=== PATIENT | female | born 1965 | race Caucasian/White ===

== ENCOUNTER 2018-03-15 18:00 | Emergency (ER) | payer SELFPAY ==
[~2018-03-15] VITALS: Ht 177.8 cm; Wt 100.0 kg
[~2018-03-15 18:00] MED LIST: CALTRATE-600 W600 MG PO; CEPHALEXIN500 M1 PO; FLEXERIL 1010 MG/TAB PO; GREEN TEA PO; MVI PO; NO HOME MEDICATIONS; NORCO 325 MG-51 TAB PO; PREDNISONE10 MG PO; TYLENOL 325MG325 MG PO; VITAMIN C1 TAB PO
[2018-03-15 18:03] VITALS: TEMP 98.2
[2018-03-15] MEDS ORDERED: TYLENOL 500MG500 MG PO (18:16)
[2018-03-15] MEDS ORDERED: FLEXERIL 1010 MG/TAB PO (18:59)
[2018-03-15 19:49] VITALS: BP 179/89; PULSE 86
== END 2018-03-15 19:53 | disposition home or self-care (01) ==
LOC: COL.ER 18:00
DX: G89.29 Other chronic pain (principal); M54.5 Low back pain; F17.210 Nicotine dependence, cigarettes, uncomplicated; Z98.890 Other specified postprocedural states; X50.0XXA Overexertion from strenuous movement or load, initial encounter
CPT/HCPCS: J1885; J2360

== ENCOUNTER 2021-07-24 07:04 | Inpatient (IN) | payer SELFPAY ==
[~2021-07-24] VITALS: Ht 177.8 cm; Wt 96.8 kg
[~2021-07-24 07:04] MED LIST changes: +TYLENOL 500MG500 MG PO
[2021-07-24 07:43] LABS: BASO # 0.1 K/mm3 (0.0-0.2); BASO % 0.6 % (0.0-2.0); EOS % 0.3 % (0.0-4.0); GRAN # 6.9 K/mm3 (1.4-6.5); GRAN % 77.8 % (42.2-75.2); HEMATOCRIT 49.6 % (37.0-47.0); HEMOGLOBIN 16.5 g/dl (12.5-16.0); LYMPH # 1.4 K/mm3 (1.2-3.4); MEAN CELL VOLUME 92 fl (80.0-100.0); MEAN CORPUSCULAR HEMOGLOBIN 31 pg (27-31); MEAN CORPUSCULAR HGB CONC 33 g/dl (33.0-37.0); MEAN PLATELET VOLUME 11.2 fl (7.4-10.4); MONO # 0.5 K/mm3 (0.1-0.6); MONO % 5.1 % (1.7-9.3); PLATELET COUNT 244 K/mm3 (130-400); RED BLOOD COUNT 5.39 M/mm3 (4.10-5.30); REDCELL DISTRIBUTION WIDTH-CV 12.7 % (11.5-14.5)
[2021-07-24 07:55] LABS: BILIRUBIN,TOTAL 0.5 mg/dL (0.2-1.2); CALCIUM 9.4 mg/dL (8.4-10.2); CREATININE, serum 0.73 mg/dL (0.57-1.11); POTASSIUM 4.8 mmol/L (3.5-4.5); TOTAL PROTEIN 6.6 gm/dL (6.2-8.1)
[2021-07-24 08:01] LABS: TROPONIN-I 0.032 ng/mL (0.00-0.033)
--- NOTE | 2021-07-24 15:00 | NUR ---
Patient to room 318 from the ED by wheelchair, daughter with the patient. Nurse oriented the patient to location, bed, call light and visitor policy. Patient A&Ox4. VSS 3L NC O2, no reported SOB. Call light within reach
--- NOTE | 2021-07-24 18:15 | NUR ---
Patient resting in bed, No complaints. Independent in the room. Call light within reach
[2021-07-24 21:53] VITALS: BP 129/81; PULSE 120; TEMP 97.2
[2021-07-25] VITALS (7 sets, daily range): BP systolic 106–139; BP diastolic 70–92; PULSE 104–132; TEMP 97.6–98
--- NOTE | 2021-07-25 05:15 | NUR ---
NO NEW ISSUES NOTED OR REPORTED BY PATIENT THROUGHOUT THE NIGHT. PATIENT RESTED QUIETLY IN BED.
[2021-07-25 07:01] LABS: BASO % 0.1 % (0.0-2.0); EOS % 0.1 % (0.0-4.0); GRAN # 11.6 K/mm3 (1.4-6.5); GRAN % 81.7 % (42.2-75.2); HEMATOCRIT 45.5 % (37.0-47.0); LYMPH # 1.5 K/mm3 (1.2-3.4); LYMPH % 10.8 % (20.0-51.0); MEAN CELL VOLUME 93 fl (80.0-100.0); MEAN CORPUSCULAR HEMOGLOBIN 31 pg (27-31); MEAN CORPUSCULAR HGB CONC 33 g/dl (33.0-37.0); MEAN PLATELET VOLUME 11.5 fl (7.4-10.4); MONO % 6.7 % (1.7-9.3); PLATELET COUNT 228 K/mm3 (130-400); RED BLOOD COUNT 4.91 M/mm3 (4.10-5.30); REDCELL DISTRIBUTION WIDTH-CV 12.7 % (11.5-14.5)
[2021-07-25 07:20] LABS: CREATININE, serum 0.62 mg/dL (0.57-1.11); POTASSIUM 4.1 mmol/L (3.5-4.5)
--- NOTE | 2021-07-25 08:00 | NUR ---
Patient sitting up in bed eating breakfast. A&Ox4. VSS patient took off O2, states she thinks she doesnt need it. No reported SOB. HR tachycardic, doctor aware. Denies pain and discomfort. Call light within reach
--- NOTE | 2021-07-25 18:14 | NUR ---
Patient sitting up in bed with daughter, talking. Nurse updated the patient and answered questions. A&Ox4. VSS, HR tachycardic, doctor Chau aware and telemetry monitoring. IV CDI. Denies pain and discomfort. Call light within reach
--- NOTE | 2021-07-25 19:58 | NUR ---
TX GIVEN VIA MOUTHPIECE, TOLERATED WELL.
[2021-07-26 04:26] VITALS: BP 116/69; PULSE 126; TEMP 97.7
[2021-07-26 06:33] LABS: HEMATOCRIT 45.9 % (37.0-47.0); HEMOGLOBIN 15.1 g/dl (12.5-16.0); MEAN CELL VOLUME 95 fl (80.0-100.0); MEAN CORPUSCULAR HEMOGLOBIN 31 pg (27-31); MEAN CORPUSCULAR HGB CONC 33 g/dl (33.0-37.0); MEAN PLATELET VOLUME 11.4 fl (7.4-10.4); PLATELET COUNT 210 K/mm3 (130-400); RED BLOOD COUNT 4.85 M/mm3 (4.10-5.30); REDCELL DISTRIBUTION WIDTH-CV 13.1 % (11.5-14.5)
[2021-07-26 06:46] LABS: CALCIUM 9.1 mg/dL (8.4-10.2); CREATININE, serum 0.72 mg/dL (0.57-1.11); POTASSIUM 3.6 mmol/L (3.5-4.5)
[2021-07-26 07:34] LABS: LYMPHOCYTE 7 % (20.0-51.0); NEUTROPHILS 91 % (42.0-75.2); PLATELET ESTIMATE NORMAL (NORMAL)
[2021-07-26 07:47] VITALS: BP 134/80; PULSE 130; TEMP 98
--- NOTE | 2021-07-26 09:00 | NUR ---
Assessment completed, alert/oriented, she reports feeling better, denies any pain or discomfort, reporst breathing easier, lungs are CTA/ diminished, she is on room air, heart regular but tachycardic 120-130's/ notified hospitalist and Cardiology consulted, patient is hoping to be discharged home today and I have discussed plan of care with her, we have discussed smoking cessation, patient denies otehr needs at this time
--- NOTE | 2021-07-26 09:56 | NUR ---
slab worker met with patient to complete intake. Patient reports that she lives at home alone in [place]. She reports to being fully independent with her ADL's and does not utilize any DME to assist with mobility. Patient has no home oxygen needs. She states that she does not have a PCP due to cost. She utilizes [facility] for medications but states that she cannot afford them. I educated the patient that i would contact our financial counselor to complete a FAA and to explore the possibility of applying for [facility]. Patient is agreeable to this. Also informed the patient that we would be able to provide a medication voucher at the time of discharge to help with new medications. Patient reports that she does not have a DPOA-HC established at this time. She is not legally and has 5 biological children. Education is provided and the patient verbalizes that she does not wish to establish one at this time. Does state that her two daughters Radha ([phone]) and Piper ([phone]) are the easiest to get ahold of. Patient is planning on returning home once medically ready. Email sent to Christelle to see if she would be able to meet with the patient. Discharge plan: Home; Will need a PCP and medication voucher
[2021-07-26 12:06] VITALS: BP 161/89; PULSE 121; TEMP 97.6
--- NOTE | 2021-07-26 12:59 | NUR ---
First visit from the [facility]. No needs right now.
[2021-07-26 15:34] VITALS: BP 124/69; PULSE 116; TEMP 97.5
[2021-07-26 20:05] VITALS: BP 129/75; PULSE 116; TEMP 97.5
[2021-07-26 23:44] VITALS: BP 123/82; PULSE 113; TEMP 98.1
[2021-07-27] VITALS (10 sets, daily range): BP systolic 123–170; BP diastolic 74–106; PULSE 100–149; TEMP 97.4–98.1
[2021-07-27 06:13] LABS: BASO % 0.1 % (0.0-2.0); EOS % 0.4 % (0.0-4.0); GRAN # 7.3 K/mm3 (1.4-6.5); GRAN % 67.7 % (42.2-75.2); HEMATOCRIT 47.3 % (37.0-47.0); HEMOGLOBIN 15.4 g/dl (12.5-16.0); LYMPH # 2.8 K/mm3 (1.2-3.4); LYMPH % 25.6 % (20.0-51.0); MEAN CELL VOLUME 95 fl (80.0-100.0); MEAN CORPUSCULAR HEMOGLOBIN 31 pg (27-31); MEAN CORPUSCULAR HGB CONC 33 g/dl (33.0-37.0); MEAN PLATELET VOLUME 11.1 fl (7.4-10.4); MONO # 0.6 K/mm3 (0.1-0.6); MONO % 5.8 % (1.7-9.3); PLATELET COUNT 233 K/mm3 (130-400); REDCELL DISTRIBUTION WIDTH-CV 13.2 % (11.5-14.5)
[2021-07-27 06:27] LABS: CALCIUM 8.8 mg/dL (8.4-10.2); CREATININE, serum 0.67 mg/dL (0.57-1.11); POTASSIUM 3.4 mmol/L (3.5-4.5)
--- NOTE | 2021-07-27 06:45 | NUR ---
Report received, assumed care for day shift.
--- NOTE | 2021-07-27 08:25 | NUR ---
Off floor for Rose Mary Scan
--- NOTE | 2021-07-27 13:00 | NUR ---
I am taking over care for this patient at this time, she is resitng in bed with family present, discussed plan fo care/ plans for anushka mohan, she verbalized understanding, will cotninue to monitor
--- NOTE | 2021-07-27 14:28 | NUR ---
Patient is provided information on the [facility]. I informed the patient that we would schedule a hospital follow up for her with this clinic.
[2021-07-28] VITALS (11 sets, daily range): BP systolic 118–137; BP diastolic 76–93; PULSE 89–121; TEMP 97.1–97.7
--- NOTE | 2021-07-28 06:11 | NUR ---
PATIENTS HEART RATE IMPROVED THROUGHOUT THE SHIFT. NO NEW ISSUES NOTED OR REPORTED BY PATIENT.
--- NOTE | 2021-07-28 08:00 | NUR ---
Shift assessment complete. Pt resting in bed A&Ox4. Vitals stable. Heart RRR, mildly tachycardic at times. Denies chest pain, SOA, dizziness. Does report feeling anxious about heart cath scheduled for this morning and anxious to discharge d/t no insurance. Denies needs at this time. Continuing to monitor.
--- NOTE | 2021-07-28 10:00 | NUR ---
Pt off unit for heart cath at this time.
--- NOTE | 2021-07-28 10:28 | NUR ---
See merge for all medication, assessment, intervention, and vital signs times.
[2021-07-28] MEDS ORDERED: CARDIZEM CD 12120 MG PO (11:52)
[2021-07-28] MEDS ORDERED: PREDNISONE20 MG PO (11:53)
[2021-07-28] MEDS ORDERED: PROAIR HFA0.09 MG/AC IH (12:42)
[2021-07-28] MEDS ORDERED: LASIX 20MG TABL20 MG PO (12:42)
--- NOTE | 2021-07-28 15:00 | NUR ---
Pt back from heart cath at 1100. Right AC IV leaking and removed in laborer tanbark and new IV started to left wrist. This IV leaking upon return to room and removed. Verbal order given by Felicia ZURITA that no IV access needed as pt discharging this afternoon. Attempted to remove 5 mls air from TR band at 1300 and site began bleeding. 5 mls air reinjected. At 1340, 3 mls air removed w/o bleeding. Returned at 1400 and another 3 mls of air removed. At 1430 remaining 6 mls air removed. Site CDI. Vitals stable. Discharge instructions discussed w/pt and questions answered. Pt escorted out at this time w/all belongings.
== END 2021-07-28 15:00 | disposition home or self-care (01) | DRG 286 ==
LOC: COL.ER 07:04 → MEDICAL 14:24 → SURG 07-28 10:47 → MEDICAL 07-28 15:00
PROVIDERS: Personal Emergency Response Attendant; Physician Assistant; ADMIT Student in an Organized Health Care Education/Training Program
PROC: 4A023N7 Measurement of Cardiac Sampling and Pressure, Left Heart, Percutaneous Approach (ICD-10-PCS; principal; 2021-07-24)
PROC: B2111ZZ Fluoroscopy of Multiple Coronary Arteries using Low Osmolar Contrast (ICD-10-PCS; 2021-07-24)
DX: I50.31 Acute diastolic (congestive) heart failure (principal); J96.01 Acute respiratory failure with hypoxia; F17.210 Nicotine dependence, cigarettes, uncomplicated; G89.29 Other chronic pain; M54.50 Low back pain, unspecified; E87.5 Hyperkalemia; J44.9 Chronic obstructive pulmonary disease, unspecified; I34.0 Nonrheumatic mitral (valve) insufficiency; E87.6 Hypokalemia
CPT/HCPCS: 99222-AI; 99232-AI; 99239; A9284; A9500; J1250; J1644; J1650; J1940; J2250; J2920; J2930; J3010; J7512; Q9967